=== PATIENT | male | born 1985 | race Caucasian/White ===

== ENCOUNTER 2016-11-09 07:00 | Emergency (ER) | payer OTHER ==
[2016-11-09] MEDS ORDERED: TENIVAC IM ONE (08:32)
[2016-11-09] MEDS ORDERED: TETCAINE OU ONE (08:59)
[2016-11-09] MEDS ORDERED: BSS OU ONE (09:00)
[2016-11-09] MEDS ORDERED: FUL-GLO OP ONE ×2 (09:00→09:06)
[2016-11-09] MEDS ORDERED: BSS ONE (09:06)
[2016-11-09] MEDS ORDERED: TETCAINE ONE (09:06)
[2016-11-09] MEDS ORDERED: NACL 0.9% IR ONE (09:12)
--- NOTE | 2016-11-09 09:26 | XRay Report ---
LEFT SHOULDER: Routine views demonstrate normal bony and soft tissue structures with normal joint alignment of the shoulder. IMPRESSION: Normal study. Bilateral hands, 3 views of each: There are no fractures or displacement identified in either hand. The joints are preserved. No obvious swelling or soft tissue foreign bodies. Impression: Normal exam bilaterally.
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
[2016-11-09 11:33] VITALS: BP 135/86
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
[2016-11-09] MEDS ORDERED: TRIPLE ANTIBIOTIC TP ONE (12:46)
== END 2016-11-09 13:42 | disposition home or self-care (01) ==
LOC: ED 07:00
DX: S00.83XA Contusion of other part of head, initial encounter (principal); S40.012A Contusion of left shoulder, initial encounter; S60.222A Contusion of left hand, initial encounter; V49.49XA Driver injured in collision with other motor vehicles in traffic accident, initial encounter; Y93.9 Activity, unspecified; Y92.9 Unspecified place or not applicable; Y99.9 Unspecified external cause status
CPT/HCPCS: 70486; 90471; 90714; A6250